=== PATIENT | female | born 1945 | race Caucasian/White ===

== ENCOUNTER 2016-06-19 18:14 | Emergency (ER) | payer MEDICARE ==
[~2016-06-19] VITALS: Ht 170.2 cm; Wt 88.5 kg
--- NOTE | 2016-06-19 19:00 | NUR ---
care endorsed by dayshift nurse, pt lying in bed resting, alert, oriented x 4, no resp distress noted or reported upon assessment... md at bedside...
[2016-06-19] MEDS ORDERED: LIDOCAINE 1%-EPI 1:100,000 20 ML VIAL TP ONE (19:30)
[2016-06-19] MEDS ORDERED: TDAP DIPH,PERTUSS,TET VAC/PF 0.5 ML DISP.SYRIN IM ONE ×3 (19:30→19:58)
--- NOTE | 2016-06-19 21:14 | NUR ---
Patient discharged to home in stable conditon. Written and verbal after care instructions given. Patient verbalizes understanding of instructions. Pt walked out of ER unassisted with belongings at side....
[2016-06-19] MEDS ORDERED: NEOMY/BACITRA/POLYMYXIN B OINT UD PACKET TP ONE ×2 (21:15→21:28)
== END 2016-06-19 21:30 | disposition home or self-care (01) ==
LOC: ER 18:19
DX: S01.01XA Laceration without foreign body of scalp, initial encounter (principal); S09.90XA Unspecified injury of head, initial encounter; R40.4 Transient alteration of awareness; I10 Essential (primary) hypertension; W22.8XXA Striking against or struck by other objects, initial encounter; Y93.89 Activity, other specified; Y99.8 Other external cause status; Y92.89 Other specified places as the place of occurrence of the external cause
CPT/HCPCS: 12001; 70450; 72125; 90471; 90715; 99284; A4663; J3490